=== PATIENT | male | born 1945 | race Hispanic/Latino ===

== ENCOUNTER → 2020-06-29 | Outpatient (CLI) | payer MEDICARE | END | disposition home or self-care (01) | LOC: RAH 08:40 | PROVIDERS: ATTEND Internal Medicine Gastroenterology | DX: K21.9 Gastro-esophageal reflux disease without esophagitis (principal); R13.10 Dysphagia, unspecified | CPT/HCPCS: 74240 ==

== ENCOUNTER → 2020-08-10 | Outpatient (CLI) | payer MEDICARE ==
--- NOTE | 2020-08-10 10:30 | NUR ---
MBSS COMPLETED. TRANSIENT PENETRATION WITH THIN LIQUIDS. RECOMMEND REGULAR TEXTURE, THIN LIQUIDS; PILLS WHOLE WITH CHIN TUCK. RECOMMENDATIONS: 1. SKILLED SPEECH THERAPY 2XWEEK FOR 4 WEEKS TARGETING DYSPHAGIA. 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 Pt DEMONSTRATED CHIN TUCK INDEPENDENTLY AT THIS TIME. ALL QUESTIONS ANSWERED. REPEAT MBSS IS RECOMMENDED AFTER THERAPEUTIC INTERVENTION. Addendum: 08/10/20 at 1626 by JIGAR HASSAN, [facility] Amended: Links added.
== END | disposition home or self-care (01) ==
LOC: RAH 10:16
PROVIDERS: ATTEND Internal Medicine Gastroenterology
DX: R13.13 Dysphagia, pharyngeal phase (principal); R13.12 Dysphagia, oropharyngeal phase; R63.3 Feeding difficulties
CPT/HCPCS: 74230; 92611

== ENCOUNTER → 2021-03-09 | Outpatient (CLI) | payer MEDICARE | END | disposition home or self-care (01) | LOC: SHCH 09:16 | PROVIDERS: ATTEND Internal Medicine Cardiovascular Disease | DX: I73.9 Peripheral vascular disease, unspecified (principal) | CPT/HCPCS: 93925 ==

== ENCOUNTER 2022-04-03 05:51 | Day surgery (SDC) | payer MEDICARE ==
[2022-03-30 09:13] VITALS: BP 143/56
[2022-03-30 13:02] LABS: BASOPHILS % (AUTO) 0.3 % (0.0-5.0); EOSINOPHILS % (AUTO) 4.2 % (0.0-8.0); HEMATOCRIT 33.9 % (42-54); LYMPHOCYTES % (AUTO) 23.4 % (21.0-51.0); MEAN CORPUSCULAR HEMOGLOBIN 34.1 pg (27.0-33.0); MEAN CORPUSCULAR HGB CONC 33.6 g/dL (32.0-36.0); MEAN CORPUSCULAR VOLUME 101.5 fL (79-99); NEUTROPHILS % (AUTO) 62.8 % (40.0-77.0); PLATELET COUNT (AUTO) 180 K/uL (130-400); RED BLOOD CELL COUNT(AUTO) 3.34 MIL/uL (4.50-6.20); RED CELL DISTRIBUTION WIDTH 14.6 % (11.0-15.5); WHITE BLOOD COUNT (AUTO) 6.2 K/uL (4.8-10.8)
[2022-03-30 13:08] LABS: CREATININE 2.2 mg/dL (0.5-1.5); POTASSIUM 4.5 mmol/L (3.5-5.1)
[2022-03-30 13:09] LABS: APPEARANCE,URINE CLEAR (CLEAR); BILIRUBIN,URINE NEGATIVE (NEGATIVE); COLOR,URINE YELLOW (YELLOW); GLUCOSE, URINE (UA) 500 mg/dL (NEGATIVE); KETONES,URINE NEGATIVE (NEGATIVE); LEUKOCYTE ESTERASE ,URINE NEGATIVE (NEGATIVE); NITRATE,URINE NEGATIVE (NEGATIVE); OCCULT BLOOD,URINE NEGATIVE (NEGATIVE); PH,URINE 5.5 (5.0-8.0); PROTEIN,URINE TRACE mg/dL (NEGATIVE); UROBILINOGEN,URINE 0.2 mg/dL (0.2-1.0)
[2022-03-30 13:10] LABS: INR 0.93 (0.85-1.15); PROTHROMBIN TIME 10.2 SEC (9.6-11.6)
[2022-03-30 13:12] LABS: PARTIAL THROMBOPLASTIN TIME 27.2 SEC (26.3-35.5)
[2022-03-30 13:19] LABS: BACTERIA,URINE None Seen /HPF (None Seen); RBC,URINE None Seen /HPF (0-1); SQUAMOUS EPITHELIAL CELL,UR 0-2 /HPF (0-2); WBC,URINE None Seen /HPF (0-1)
[2022-03-30 13:36] LABS: B-TYPE NATRIURETIC PEPTIDE 80 pg/mL (0-100)
[2022-04-03] VITALS (13 sets, daily range): BP systolic 115–184; BP diastolic 47–84
[~2022-04-03] VITALS: Ht 185.4 cm; Wt 120.8 kg
[~2022-04-03 05:51] MED LIST: ASPI-1443 PO; DAPA5TAB PO; EXEN5PEN2 SQ; FURO40TA5 PO; GABA-533 PO; HYDR100T27 PO; INSU100C6 SQ; LEVO25CA4 PO; LOSA100T58 PO; MECL-226 PO; METO25TA6 PO; OMEP40CA21 PO; ROSU20TA31 PO
[2022-04-03] MEDS ORDERED: 0.9%NACL 1000ML 1,000 ML IV ONE (06:21)
[2022-04-03 06:25] LABS: CREATININE 1.8 mg/dL (0.5-1.5); POTASSIUM 4.6 mmol/L (3.5-5.1)
[2022-04-03] MEDS ORDERED: IOHEXOL 350 MG/ML 100ML INFUS..BTL IV ONE (07:04)
[2022-04-03] MEDS ORDERED: IOHEXOL-350 50ML VIAL IV ONE (07:04)
[2022-04-03] MEDS ORDERED: LIDOCAINE HCL 400MG/20ML VIAL ONE (07:04)
[2022-04-03] MEDS ORDERED: NITROGLYCERIN 50MG VIAL ONE (07:04)
[2022-04-03] MEDS ORDERED: HEPARIN 10,000 UNIT/10ML (1,000 UNIT/ML) VIAL ONE (07:28)
[2022-04-03] MEDS ORDERED: BIVALIRUDIN 250 MG/VIAL IV ONE (07:28)
[2022-04-03] MEDS ORDERED: MIDAZOLAM HCL 1 MG/ML 2ML VIAL ONE (07:29)
[2022-04-03] MEDS ORDERED: FENTANYL CITRATE PF 50 MCG/1 ML 2ML VIAL ONE (07:29)
[2022-04-03] MEDS ORDERED: DEXTROSE 50%-WATER 50 ML DISP.SYRIN IV PRN (08:30)
[2022-04-03] MEDS ORDERED: GLUCAGON 1MG KIT 1 MG ML IM PRN (08:30)
[2022-04-03] MEDS ORDERED: NITROGLYCERIN 0.4 MG SL TAB SL PRN (08:30)
[2022-04-03] MEDS: 0.9%NACL 1000ML 1,000 ML IV SCH ×2 (08:50→12:55)
[2022-04-03] MEDS ORDERED: INSULIN HUMULIN R 100 UNIT/ML 3ML SQ SCH (11:30)
== END 2022-04-03 14:30 | disposition home or self-care (01) ==
LOC: DAH 05:51
PROVIDERS: ATTEND Internal Medicine Cardiovascular Disease
DX: R06.09 Other forms of dyspnea (principal); R06.02 Shortness of breath; I20.9 Angina pectoris, unspecified; I11.0 Hypertensive heart disease with heart failure; E11.51 Type 2 diabetes mellitus with diabetic peripheral angiopathy without gangrene; I50.42 Chronic combined systolic (congestive) and diastolic (congestive) heart failure; E78.5 Hyperlipidemia, unspecified; K21.9 Gastro-esophageal reflux disease without esophagitis; Z79.4 Long term (current) use of insulin; Z79.82 Long term (current) use of aspirin; Z79.01 Long term (current) use of anticoagulants; Z79.899 Other long term (current) drug therapy; Z98.890 Other specified postprocedural states
CPT/HCPCS: 36415 ×2; 71045; 80048 ×2; 81001; 83880; 85025; 85610; 85730; 93005; 93460; A4215; A4216; A4221; A4222; A4223 ×3; A4606; A4663; C1760; C1894 ×3; J1644; J2250; J3010; J3490 ×2; J7030; Q9965; Q9967; 99156; 99157; J0583